=== PATIENT | female | born 1990 | race Caucasian/White ===

== ENCOUNTER → 2021-04-28 | Outpatient (CLI) | payer BC | END | disposition home or self-care (01) | LOC: LAB 10:55 | PROVIDERS: ATTEND Internal Medicine Endocrinology, Diabetes & Metabolism | DX: Z01.84 Encounter for antibody response examination (principal); J45.998 Other asthma; E10.9 Type 1 diabetes mellitus without complications; R53.83 Other fatigue | CPT/HCPCS: 36415; 83036 ==